=== PATIENT | female | born 1975 | race American Indian/Alaskan Native ===

== ENCOUNTER 2016-09-15 07:45 | Emergency (ER) | payer OTHER ==
[2016-09-15 08:38] LABS: Basophils % (Auto) 0.4 % (0.0-1.8); Eosinophils % (Auto) 1.5 % (0.0-4.3); Hematocrit 38.5 % (30.3-42.9); Hemoglobin 12.9 gm/dl (10.1-14.3); Mean Corpuscular HGB Conc 33 % (30-34); Mean Corpuscular Hemoglobin 31 pg (28-32); Mean Corpuscular Volume 91 fl (79-97); Platelet Count 256 K/mm3 (140-440); Red Blood Count 4.23 M/mm3 (3.65-5.03); Red Cell Distribution Width 13.8 % (13.2-15.2); White Blood Count 6.3 K/mm3 (4.5-11.0)
[2016-09-15 08:43] LABS: Anion Gap 16 mmol/L; Blood Urea Nitrogen 15 mg/dL (7-17); Calcium 8.4 mg/dL (8.4-10.2); Carbon Dioxide 27 mmol/L (22-30); Chloride 103.2 mmol/L (98-107); Glucose 85 mg/dL (65-100); Potassium 4.3 mmol/L (3.6-5.0); Sodium 142 mmol/L (137-145)
[2016-09-15 09:44] LABS: Bacteria,Urine 1+ /HPF (Negative); Bilirubin,Urine NEG (Negative); Blood,Urine LG (Negative); Ketones,Urine NEG (Negative); Leukocyte Esterase,Urine NEG (Negative); Mucus,Urine 1+ /HPF; Nitrite,Urine NEG (Negative); Protein,Urine <15 mg/dL mg/dL (Negative)
--- NOTE | 2016-09-15 12:52 | Emergency Department Report ---
ED Female HPI - General Chief complaint: Vaginal Bleeding Stated complaint: POST MENOPAUSAL BLEEDING Time Seen by Provider: 09/15/16 12:31 Source: patient, RN notes reviewed Mode of arrival: Ambulatory Limitations: No Limitations - History of Present Illness Initial comments: 41-year-old female presents to the emergency department complaining of vaginal bleeding. Patient states she began having vaginal bleeding yesterday morning. She reports cramping lower abdominal pain. This pain does not radiate. Patient reports using 1 pad per hour. She reports occasional lightheadedness, but has not passed out. She denies nausea or vomiting. Patient states she has not had a menstrual cycle in almost 2 years after undergoing chemotherapy and radiation for right breast cancer. She states that she went to [facility] yesterday and had abdominal and transvaginal ultrasound. She states that this showed uterine fibroids. Patient was discharged home to follow up with her OB/ OVEN WORKER. Patient states she called her GRAPHIC MANAGER office, and has an appointment for tomorrow. Her bleeding has continued and the patient came to the ED for further evaluation. There are no other complaints. MD Complaint: vaginal bleeding -: Gradual, days(s) (1) Location: suprapubic Radiation: non-radiating Severity: mild Severity scale (0 -10): 3 Quality: cramping Consistency: intermittent Improves with: none Worsens with: none Are you Now?: No Associated Symptoms: denies other symptoms - Related Data Previous Rx's Medication Instructions Recorded Last Taken Type medroxyPROGESTERone ACETATE 10 mg PO QDAY #7 tablet 09/15/16 Unknown Rx [Provera] Allergies Allergy/AdvReac Type Severity Reaction Status Date / Time No Known Allergies Allergy Unverified 09/15/16 07:55 ED Review of Systems ROS: Stated complaint: POST MENOPAUSAL BLEEDING Other details as noted in HPI Comment: All other systems reviewed and negative Cardiovascular: syncope (lightheadedness, no loss of consciousness) Gastrointestinal: abdominal pain Genitourinary: abnormal menses ED Past Medical Hx - Past Medical History Previous Medical History?: Yes Hx of Cancer: Yes (right breast) Additional medical history: Fibroids, Vertigo, Abd. pain - Surgical History Past Surgical History?: Yes Additional Surgical History: exp. lap, Endometriosis - Family History Family history: no significant - Social History Smoking Status: Never Smoker Substance Use Type: Alcohol - Medications Home Medications: Home Medications Medication Instructions Recorded Confirmed Last Taken Type medroxyPROGESTERone ACETATE 10 mg PO QDAY #7 tablet 09/15/16 Unknown Rx [Provera] ED Physical Exam - General Limitations: No Limitations General appearance: alert, in no apparent distress - Head Head exam: Present: atraumatic, normocephalic - Eye Eye exam: Present: normal appearance, PERRL, EOMI - ENT ENT exam: Present: normal exam, normal orophraynx, mucous membranes moist - Neck Neck exam: Present: normal inspection, full ROM. Absent: tenderness - Respiratory Respiratory exam: Present: normal lung sounds bilaterally. Absent: respiratory distress - Cardiovascular Cardiovascular Exam: Present: regular rate, normal rhythm, normal heart sounds - GI/Abdominal GI/Abdominal exam: Present: soft, tenderness (mild suprapubic tenderness to palpation), normal bowel sounds. Absent: distended, guarding, rebound - Extremities Exam Extremities exam: Present: normal inspection, full ROM. Absent: tenderness - Back Exam Back exam: Present: normal inspection, full ROM. Absent: tenderness - Neurological Exam Neurological exam: Present: alert, oriented X3. Absent: motor sensory deficit - Skin Skin exam: Present: warm, dry, intact ED Course Vital Signs 09/15/16 09/15/16 09/15/16 07:55 11:10 11:20 Temperature 97.6 F Pulse Rate 53 L Respiratory 18 Rate Blood Pressure 140/112 128/64 128/64 O2 Sat by Pulse 100 100 Oximetry 09/15/16 09/15/16 09/15/16 11:23 11:30 11:40 Temperature Pulse Rate Respiratory 12 Rate Blood Pressure 113/75 128/64 O2 Sat by Pulse 100 100 Oximetry ED Medical Decision Making - Lab Data Result diagrams: 09/15/16 08:09 09/15/16 08:09 - Medical Decision Making Laboratory results reviewed and discussed with the patient. I have spoken with the [facility] doctor at [facility]. Patient will be started on oral Provera and discharged home. She has an appointment with her GRAPHIC MANAGER tomorrow. - Differential Diagnosis DUB, anemia, uterine fibroids Critical care attestation.: If time is entered above; I have spent that time in minutes in the direct care of this critically ill patient, excluding procedure time. ED Disposition Clinical Impression: Dysfunctional uterine bleeding Disposition: DISCHARGED TO HOME OR SELFCARE Is pt being admited?: No Condition: Stable Instructions: Uterine Fibroids (ED) Prescriptions: medroxyPROGESTERone ACETATE [Provera] 10 mg PO QDAY #7 tablet Referrals: DR BRENDA [Other] - 3-5 Days Time of Disposition: 13:55
[2016-09-15 13:56] VITALS: BP 124/64
== END 2016-09-15 14:10 | disposition home or self-care (01) ==
LOC: ED 07:45
DX: N93.8 Other specified abnormal uterine and vaginal bleeding (principal); C50.912 Malignant neoplasm of unspecified site of left female breast
CPT/HCPCS: 36415; 80048; 81001; 85025; 86850; 86900; 86901; 99283